=== PATIENT | female | born 1935 | race African-American/Black ===

== ENCOUNTER 2025-04-20 19:08 | Inpatient (IN) | payer MEDICARE, MEDICAID ==
[~2025-04-20] VITALS: Ht 154.9 cm; Wt 51.0 kg
[2025-04-20 20:44] LABS: PLATELET COUNT (AUTO) 182 K/uL (150-450); RED BLOOD CELL COUNT(AUTO) 4.22 MIL/uL (4.00-5.20); RED CELL DISTRIBUTION WIDTH 22.0 % (11.5-14.5); WHITE BLOOD COUNT (AUTO) 4.8 K/uL (4.5-11.0)
[2025-04-20 20:55] LABS: CALCIUM, TOTAL 9.1 mg/dL (8.8-10.5); CREATININE 0.66 mg/dL (0.60-1.30); GLOMERULAR FILTR. RATE CALC > 60 mL/min (>60); GLUCOSE,RANDOM 136 mg/dL (70-110); SODIUM SERUM 140 mmol/L (136-145); UREA NITROGEN, BLOOD 11 mg/dL (7-18)
[2025-04-20 21:04] LABS: ASPARTATE AMINOTRANSFERASE 27.0 U/L (15-37); CREATINE KINASE, TOTAL ONLY 31.0 U/L (26-192); TOTAL PROTEIN, SERUM 6.9 g/dL (6.4-8.2)
[2025-04-20 21:11] LABS: TROPONIN I-HIGH SENSITIVITY 17 ng/L (<51)
[2025-04-20] MEDS ORDERED: AZITHROMYCIN 500 MG/NS 250 ML IV ONE (21:15)
[2025-04-20] MEDS ORDERED: CefTRIAXone 1 GM/DEXTROSE 50 ML IV ONE (21:15)
[2025-04-20 21:23] LABS: RBC MORPHOLOGY COMMENT ABNORMAL RBC MORPH
[2025-04-20] MEDS ORDERED: ONDANSETRON HCL 4 MG/2 ML VIAL IVP PRN (21:45)
[2025-04-20] MEDS ORDERED: BISACODYL 10 MG RECTAL RECTAL SUPPOSITORY PR PRN (21:45)
[2025-04-20] MEDS: DEXTROSE 5%-0.45% SODIUM CHL 1,000 ML IV ONE (21:52)
[2025-04-20] MEDS: PIPERACILLIN/TAZO 3.375 GM/D5W 50 ML IV SCH (22:03)
[2025-04-20 22:58] VITALS: BP 118/90; PULSE 63; RESP 19; TEMP 98.8; O2SAT 98
[2025-04-20] MEDS: HEPARIN SODIUM,PORCINE 5,000 UNITS/ML VIAL SQ SCH (23:37)
[2025-04-21 04:31] VITALS: BP 141/90; PULSE 64; RESP 18; TEMP 97.5; O2SAT 100
[2025-04-21] MEDS ORDERED: SODIUM CHLORIDE 0.9% 500 ML IV ONE ×2 (04:34→19:22)
[2025-04-21 08:00] VITALS: BP 144/73; PULSE 62; RESP 18; TEMP 98; O2SAT 100
[2025-04-21] MEDS: PANTOPRAZOLE SODIUM 40 MG/VIAL IVP SCH (08:47)
[2025-04-21] MEDS: DEXTROSE 5%-0.45% SODIUM CHL 1,000 ML IV ONE (15:46)
[2025-04-21 17:06] LABS: APPEARANCE,URINE CLEAR (CLEAR); GLUCOSE, URINE (UA) NEGATIVE (NEGATIVE); LEUKOCYTE ESTERASE ,URINE TRACE (NEGATIVE); NITRATE,URINE NEGATIVE (NEGATIVE); OCCULT BLOOD,URINE NEGATIVE (NEGATIVE); SPECIFIC GRAVITIY, URINE 1.014 (1.003-1.030)
[2025-04-21 17:27] LABS: SQUAMOUS EPITHELIAL CELL,UR None Seen /LPF (None Seen); YEAST,URINE Few /HPF (None Seen)
[2025-04-21 18:48] VITALS: BP 155/79; PULSE 68; RESP 18; TEMP 97.5; O2SAT 100
[2025-04-21] MEDS: VANCOMYCIN 1GM/WATER(PEG/NADA) 200 ML IV ONE (19:27)
[2025-04-21 20:00] VITALS: BP 142/76; PULSE 66; RESP 18; TEMP 97.5; O2SAT 100
[2025-04-22 04:00] VITALS: BP 148/86; PULSE 69; RESP 18; TEMP 97.7; O2SAT 100
[2025-04-22 06:51] LABS: CALCIUM, TOTAL 9.1 mg/dL (8.8-10.5); CREATININE 0.57 mg/dL (0.60-1.30); GLOMERULAR FILTR. RATE CALC > 60 mL/min (>60); GLUCOSE,RANDOM 104 mg/dL (70-110); SODIUM SERUM 140 mmol/L (136-145); UREA NITROGEN, BLOOD 5 mg/dL (7-18)
[2025-04-22] MEDS ORDERED: VANCOMYCIN 750 MG/WATER(PEG) 150 ML IV SCH (08:00)
[2025-04-22] MEDS: DEXTROSE 5%-0.45% SODIUM CHL 1,000 ML IV ONE (08:12)
[2025-04-22] MEDS: VANCOMYCIN 1GM/WATER(PEG/NADA) 200 ML IV SCH (08:12)
[2025-04-22 09:27] VITALS: BP 153/81; PULSE 83; RESP 18; TEMP 97.9; O2SAT 100
[2025-04-22 09:59] LABS: PLATELET COUNT (AUTO) 198 K/uL (150-450); RED BLOOD CELL COUNT(AUTO) 4.70 MIL/uL (4.00-5.20); RED CELL DISTRIBUTION WIDTH 22.0 % (11.5-14.5); WHITE BLOOD COUNT (AUTO) 5.7 K/uL (4.5-11.0)
[2025-04-22] MEDS: FLUCONAZOLE 100 MG/NACL ISOOSM 50 ML IV SCH (11:04)
[2025-04-22 11:10] LABS: RBC MORPHOLOGY COMMENT ABNORMAL RBC MORPH
[2025-04-22 16:00] VITALS: BP 152/91; PULSE 85; RESP 18; TEMP 97.7; O2SAT 100
[2025-04-22 20:27] VITALS: BP 139/79; PULSE 92; RESP 20; TEMP 97.9; O2SAT 100
[2025-04-23 04:00] VITALS: BP 153/78; PULSE 88; RESP 18; TEMP 97.5; O2SAT 99
[2025-04-23 07:02] LABS: CALCIUM, TOTAL 8.7 mg/dL (8.8-10.5); CREATININE 0.50 mg/dL (0.60-1.30); GLOMERULAR FILTR. RATE CALC > 60 mL/min (>60); GLUCOSE,RANDOM 120 mg/dL (70-110); SODIUM SERUM 139 mmol/L (136-145); UREA NITROGEN, BLOOD 4 mg/dL (7-18)
[2025-04-23 07:50] VITALS: BP 131/68; PULSE 73; RESP 17; TEMP 97.9; O2SAT 100
[2025-04-23] MEDS ORDERED: SODIUM CHLORIDE 0.9% 250 ML IV ONE (10:12)
[2025-04-23] MEDS: POTASSIUM CHL 10 MEQ/WATER 50 ML IV PRN (10:15)
[2025-04-23] MEDS: DEXTROSE 5%-0.45% SODIUM CHL 1,000 ML IV ONE (20:22)
[2025-04-23 21:42] VITALS: BP 148/81; PULSE 84; RESP 18; TEMP 98.5; O2SAT 100
[2025-04-24 04:59] VITALS: BP 153/83; PULSE 93; RESP 18; TEMP 98.1; O2SAT 98
[2025-04-24 06:31] LABS: CALCIUM, TOTAL 9.1 mg/dL (8.8-10.5); CREATININE 0.55 mg/dL (0.60-1.30); GLOMERULAR FILTR. RATE CALC > 60 mL/min (>60); GLUCOSE,RANDOM 100 mg/dL (70-110); SODIUM SERUM 141 mmol/L (136-145); UREA NITROGEN, BLOOD 4 mg/dL (7-18)
[2025-04-24 08:00] VITALS: BP 159/54; PULSE 87; RESP 19; TEMP 98.2; O2SAT 100
[2025-04-24 16:00] VITALS: BP 142/75; PULSE 79; RESP 19; TEMP 97.7; O2SAT 100
[2025-04-24 21:11] VITALS: BP 144/89; PULSE 78; RESP 18; TEMP 98.1; O2SAT 99
[2025-04-24] MEDS: ZOLPIDEM TARTRATE 5 MG TABLET PO ONE (22:15)
[2025-04-25 06:24] LABS: CALCIUM, TOTAL 9.1 mg/dL (8.8-10.5); CREATININE 0.59 mg/dL (0.60-1.30); GLOMERULAR FILTR. RATE CALC > 60 mL/min (>60); GLUCOSE,RANDOM 81 mg/dL (70-110); SODIUM SERUM 141 mmol/L (136-145); UREA NITROGEN, BLOOD 4 mg/dL (7-18)
[2025-04-25 06:30] VITALS: BP 158/78; PULSE 89; RESP 20; TEMP 98.2; O2SAT 99
[2025-04-25] MEDS ORDERED: SODIUM CHLORIDE 0.9% 500 ML IV ONE ×2 (08:10→10:32)
[2025-04-25 09:06] VITALS: BP 135/63; PULSE 85; RESP 18; TEMP 98.6; O2SAT 100
[2025-04-25] MEDS: POTASSIUM CHLORIDE 20 MEQ ER TABLET PO PRN (10:04)
[2025-04-25 15:19] VITALS: BP 122/70; PULSE 76; RESP 18; TEMP 98.6; O2SAT 100
[2025-04-25 20:00] VITALS: BP 142/62; PULSE 74; RESP 20; TEMP 98.2; O2SAT 100
[2025-04-26 03:55] VITALS: BP 152/73; PULSE 79; RESP 18; TEMP 97.9; O2SAT 100
[2025-04-26 07:37] LABS: CALCIUM, TOTAL 9.1 mg/dL (8.8-10.5); CREATININE 0.65 mg/dL (0.60-1.30); GLOMERULAR FILTR. RATE CALC > 60 mL/min (>60); GLUCOSE,RANDOM 88 mg/dL (70-110); SODIUM SERUM 140 mmol/L (136-145); UREA NITROGEN, BLOOD 5 mg/dL (7-18)
[2025-04-26 09:03] VITALS: BP 139/72; PULSE 80; RESP 18; TEMP 98.1; O2SAT 100
[2025-04-26 15:16] LABS: PLATELET COUNT (AUTO) 190 K/uL (150-450); RED BLOOD CELL COUNT(AUTO) 3.96 MIL/uL (4.00-5.20); RED CELL DISTRIBUTION WIDTH 20.8 % (11.5-14.5); WHITE BLOOD COUNT (AUTO) 6.0 K/uL (4.5-11.0)
[2025-04-26 16:03] VITALS: BP 140/64; PULSE 67; RESP 18; TEMP 98.1; O2SAT 100
[2025-04-26 18:47] LABS: CALCIUM, TOTAL 9.3 mg/dL (8.8-10.5); CREATININE 0.48 mg/dL (0.60-1.30); GLOMERULAR FILTR. RATE CALC > 60 mL/min (>60); GLUCOSE,RANDOM 83 mg/dL (70-110); SODIUM SERUM 141 mmol/L (136-145); UREA NITROGEN, BLOOD 6 mg/dL (7-18)
[2025-04-26 18:52] LABS: ASPARTATE AMINOTRANSFERASE 21 U/L (15-37); TOTAL PROTEIN, SERUM 6.7 g/dL (6.4-8.2)
[2025-04-26 20:34] VITALS: BP 161/76; PULSE 74; RESP 20; TEMP 98.2; O2SAT 100
[2025-04-26 21:02] VITALS: BP 155/93
[2025-04-27 04:29] VITALS: BP 154/73; PULSE 71; RESP 18; TEMP 97.9; O2SAT 99
[2025-04-27 07:29] LABS: CALCIUM, TOTAL 9.1 mg/dL (8.8-10.5); CREATININE 0.63 mg/dL (0.60-1.30); GLOMERULAR FILTR. RATE CALC > 60 mL/min (>60); GLUCOSE,RANDOM 106 mg/dL (70-110); SODIUM SERUM 140 mmol/L (136-145); UREA NITROGEN, BLOOD 6 mg/dL (7-18)
[2025-04-27 07:41] VITALS: BP 152/75; PULSE 75; RESP 18; TEMP 97.9; O2SAT 99
[2025-04-28] MEDS ORDERED: VANCOMYCIN 750 MG/WATER(PEG) 150 ML IV SCH (08:00)
== END 2025-04-27 10:50 | disposition home or self-care (01) | DRG 177 ==
LOC: EMS 19:08 → EDH 21:38 → 6N 22:50 → 6S 04-21 20:31
PROVIDERS: ADMIT Internal Medicine; ATTEND Internal Medicine
DX: J69.0 Pneumonitis due to inhalation of food and vomit (principal); E43 Unspecified severe protein-calorie malnutrition; J96.90 Respiratory failure, unspecified, unspecified whether with hypoxia or hypercapnia; I50.32 Chronic diastolic (congestive) heart failure; R64 Cachexia; R78.81 Bacteremia; F03.C0 Unspecified dementia, severe, without behavioral disturbance, psychotic disturbance, mood disturbance, and anxiety; E11.9 Type 2 diabetes mellitus without complications; I11.0 Hypertensive heart disease with heart failure; E87.6 Hypokalemia; R62.7 Adult failure to thrive; Z66 Do not resuscitate; L89.156 Pressure-induced deep tissue damage of sacral region; D63.8 Anemia in other chronic diseases classified elsewhere; A49.02 Methicillin resistant Staphylococcus aureus infection, unspecified site; L89.016 Pressure-induced deep tissue damage of right elbow; L89.026 Pressure-induced deep tissue damage of left elbow; Z68.21 Body mass index [BMI] 21.0-21.9, adult; Z79.899 Other long term (current) drug therapy
CPT/HCPCS: 71045; 80048; 80053; 80076; 80202; 81001; 82550; 83880; 84132; 84484; 85025; 85610; 85730; 87040; 87077; 87186; 87205; 92507; 92526; 92610; 93005; 99285; J0456; J0696; J1450; J1644; J2470; J2543; J3480; J7040; J7050; 36415-L1; 36415-TC

== ENCOUNTER 2025-05-09 02:41 | Inpatient (IN) | payer MEDICARE, MEDICAID ==
[2025-05-09] VITALS (12 sets, daily range): BP systolic 112–131; BP diastolic 66–79; PULSE 60–142; RESP 18–42; TEMP 97.5–98.6; O2SAT 77–100
[~2025-05-09] VITALS: Ht 162.6 cm; Wt 47.6 kg
[2025-05-09] MEDS: FUROSEMIDE 20 MG/2 ML VIAL IVP ONE (02:50)
[2025-05-09] MEDS: 0.9% SODIUM CHLORIDE 10 ML SYRINGE IVP PRN (02:50)
[2025-05-09] MEDS: NITROGLYCERIN 2% (1 GM=INCH) OINTMENT PACKET TP ONE (02:50)
[2025-05-09 03:24] LABS: PLATELET COUNT (AUTO) 273 K/uL (150-450); RED BLOOD CELL COUNT(AUTO) 4.71 MIL/uL (4.00-5.20); RED CELL DISTRIBUTION WIDTH 19.5 % (11.5-14.5); WHITE BLOOD COUNT (AUTO) 8.1 K/uL (4.5-11.0)
[2025-05-09 03:53] LABS: RBC MORPHOLOGY COMMENT ABNORMAL RBC MORPH
[2025-05-09 03:56] LABS: CALCIUM, TOTAL 9.2 mg/dL (8.8-10.5); CREATININE 0.83 mg/dL (0.60-1.30); GLOMERULAR FILTR. RATE CALC > 60 mL/min (>60); GLUCOSE,RANDOM 213 mg/dL (70-110); SODIUM SERUM 136 mmol/L (136-145); UREA NITROGEN, BLOOD 5 mg/dL (7-18)
[2025-05-09 04:04] LABS: TROPONIN I-HIGH SENSITIVITY 22 ng/L (<51)
[2025-05-09 04:07] LABS: LACTIC ACID 2.7 mmol/L (0.4-2.0)
[2025-05-09] MEDS: SODIUM CHLORIDE 0.9% 1,000 ML IV ONE (04:56)
[2025-05-09] MEDS: CefTRIAXone 1 GM/DEXTROSE 50 ML IV ONE (04:56)
[2025-05-09 06:17] LABS: APPEARANCE,URINE CLEAR (CLEAR); GLUCOSE, URINE (UA) NEGATIVE (NEGATIVE); LEUKOCYTE ESTERASE ,URINE NEGATIVE (NEGATIVE); NITRATE,URINE NEGATIVE (NEGATIVE); OCCULT BLOOD,URINE NEGATIVE (NEGATIVE); SPECIFIC GRAVITIY, URINE 1.014 (1.003-1.030)
[2025-05-09] MEDS ORDERED: ZOLPIDEM TARTRATE 5 MG TABLET PO PRN (07:15)
[2025-05-09] MEDS ORDERED: HYDROCODONE/ACETAMINOPHEN 5-325 MG TABLET PO PRN (07:15)
[2025-05-09] MEDS ORDERED: MAGNESIUM HYDROXIDE SUSPENSION 30 ML UDCUP PO PRN (07:15)
[2025-05-09] MEDS ORDERED: BISACODYL 10 MG RECTAL RECTAL SUPPOSITORY PR PRN (07:15)
[2025-05-09] MEDS ORDERED: IPRATROPIUM BROMIDE 0.5 MG/2.5 ML NEB SOLUTION NEB PRN (07:15)
[2025-05-09] MEDS ORDERED: ALBUTEROL SULFATE 2.5 MG/0.5 ML NEB SOLUTION NEB PRN (07:15)
[2025-05-09] MEDS ORDERED: ONDANSETRON HCL 4 MG/2 ML VIAL IVP PRN (07:15)
[2025-05-09] MEDS ORDERED: ACETAMINOPHEN 325 MG TABLET PO PRN (07:15)
[2025-05-09] MEDS ORDERED: MORPHINE SULFATE 4 MG/ML SYRINGE IVP PRN (07:15)
[2025-05-09] MEDS: AZITHROMYCIN 500 MG/NS 250 ML IV SCH (07:36)
[2025-05-09] MEDS: HEPARIN SODIUM,PORCINE 5,000 UNITS/ML VIAL SQ SCH (07:51)
[2025-05-09] MEDS: ALBUTEROL SULFATE 2.5 MG/0.5 ML NEB SOLUTION NEB SCH (07:58)
[2025-05-09] MEDS: IPRATROPIUM BROMIDE 0.5 MG/2.5 ML NEB SOLUTION NEB SCH (07:59)
[2025-05-09] MEDS: PANTOPRAZOLE SODIUM 40 MG DR TABLET PO SCH (08:02)
[2025-05-09] MEDS: BENZONATATE 100 MG CAPSULE PO SCH (08:02)
[2025-05-09] MEDS: GuaiFENesin SR 600 MG ER TABLET PO SCH (08:02)
[2025-05-09] MEDS: DOCUSATE SODIUM 100 MG CAPSULE PO SCH (08:02)
[2025-05-09 08:15] LABS: GLUCOMETER DEV NAME(LOC) ERT.7; GLUCOSE,POINT OF CARE 149 MG/DL (70-110)
[2025-05-09] MEDS: FUROSEMIDE 20 MG/2 ML VIAL IVP SCH (18:09)
[2025-05-09 21:07] LABS: LACTIC ACID 1.2 mmol/L (0.4-2.0)
[2025-05-09] MEDS ORDERED: SODIUM CHLORIDE 0.9% 250 ML IV ONE (22:41)
[2025-05-09] MEDS: POTASSIUM CHL 10 MEQ/WATER 50 ML IV PRN ×2 (23:00→23:19)
[2025-05-09] MEDS ORDERED: POTASSIUM CHLORIDE 20 MEQ ER TABLET PO PRN (23:15)
[2025-05-10] VITALS (12 sets, daily range): BP systolic 121–155; BP diastolic 52–90; PULSE 60–96; RESP 16–22; TEMP 97.4–98.6; O2SAT 95–100
[2025-05-10] MEDS ORDERED: SODIUM CHLORIDE 0.9% 250 ML IV ONE (04:41)
[2025-05-10] MEDS: CefTRIAXone 1 GM/DEXTROSE 50 ML IV SCH (04:44)
[2025-05-10 06:20] LABS: GLUCOMETER DEV NAME(LOC) 5S.1E; GLUCOSE,POINT OF CARE 164 MG/DL (70-110)
[2025-05-10 06:56] LABS: PLATELET COUNT (AUTO) 213 K/uL (150-450); RED BLOOD CELL COUNT(AUTO) 4.55 MIL/uL (4.00-5.20); RED CELL DISTRIBUTION WIDTH 19.7 % (11.5-14.5); WHITE BLOOD COUNT (AUTO) 9.6 K/uL (4.5-11.0)
[2025-05-10 07:11] LABS: CALCIUM, TOTAL 8.9 mg/dL (8.8-10.5); CREATININE 0.45 mg/dL (0.60-1.30); GLOMERULAR FILTR. RATE CALC > 60 mL/min (>60); GLUCOSE,RANDOM 176 mg/dL (70-110); SODIUM SERUM 141 mmol/L (136-145); UREA NITROGEN, BLOOD 10 mg/dL (7-18)
[2025-05-11 03:31] VITALS: PULSE 71; RESP 18; O2SAT 99
[2025-05-11 04:00] VITALS: BP 131/66; PULSE 84; RESP 18; TEMP 98.1; O2SAT 100
[2025-05-11] MEDS ORDERED: SODIUM CHLORIDE 0.9% 1,000 ML ONE (05:15)
[2025-05-11 08:00] VITALS: BP 158/71; PULSE 78; PULSE 82; PULSE 88; RESP 16; RESP 18; RESP 19; TEMP 98.1; O2SAT 100; O2SAT 98
[2025-05-11 08:25] LABS: PLATELET COUNT (AUTO) 223 K/uL (150-450); RED BLOOD CELL COUNT(AUTO) 4.12 MIL/uL (4.00-5.20); RED CELL DISTRIBUTION WIDTH 19.3 % (11.5-14.5); WHITE BLOOD COUNT (AUTO) 8.5 K/uL (4.5-11.0)
[2025-05-11 08:41] LABS: CALCIUM, TOTAL 8.5 mg/dL (8.8-10.5); CREATININE 0.44 mg/dL (0.60-1.30); GLOMERULAR FILTR. RATE CALC > 60 mL/min (>60); GLUCOSE,RANDOM 166 mg/dL (70-110); SODIUM SERUM 145 mmol/L (136-145); UREA NITROGEN, BLOOD 15 mg/dL (7-18)
[2025-05-11] MEDS ORDERED: CARV3 PO (10:19)
[2025-05-11] MEDS ORDERED: LEVO-72 PO (10:19)
[2025-05-11] MEDS ORDERED: FURO20TA5 PO (10:19)
[2025-05-11] MEDS ORDERED: ALBU18HF12 IH (10:19)
[2025-05-11 14:18] VITALS: PULSE 88; RESP 18; O2SAT 100
== END 2025-05-11 13:30 | disposition home or self-care (01) | DRG 291 ==
LOC: EMS 02:42 → EDH 06:54 → 5S 12:00 → 4E 05-11 04:05
PROVIDERS: ADMIT Internal Medicine; ATTEND Internal Medicine
PROC: 5A09357 Assistance with Respiratory Ventilation, Less than 24 Consecutive Hours, Continuous Positive Airway Pressure (ICD-10-PCS; principal; 2025-05-09)
DX: I50.33 Acute on chronic diastolic (congestive) heart failure (principal); E43 Unspecified severe protein-calorie malnutrition; J96.01 Acute respiratory failure with hypoxia; R53.2 Functional quadriplegia; R64 Cachexia; Z68.1 Body mass index [BMI] 19.9 or less, adult; E11.65 Type 2 diabetes mellitus with hyperglycemia; E87.6 Hypokalemia; F03.90 Unspecified dementia, unspecified severity, without behavioral disturbance, psychotic disturbance, mood disturbance, and anxiety; T14.8XXA Other injury of unspecified body region, initial encounter; S91.321A Laceration with foreign body, right foot, initial encounter; X58.XXXA Exposure to other specified factors, initial encounter; Z79.899 Other long term (current) drug therapy; Y93.89 Activity, other specified; Y92.89 Other specified places as the place of occurrence of the external cause; Y99.8 Other external cause status
CPT/HCPCS: 71045; 80048; 81003; 82962; 83605; 83880; 84132; 84145; 84484; 85025; 85610; 87040; 93005; 94640; 94660; 94760; 96365; 96375; 99285; J0456; J0696; J1644; J1938; J2919; J3480; J7030; J7050; 36415-L1; 36415-TC; J7613